=== PATIENT | female | born 1995 | race Caucasian/White ===

== ENCOUNTER 2022-02-08 09:32 | Emergency (ER) | payer MEDICAID, SELFPAY ==
[2022-02-08 09:36] VITALS: BP 101/72; PULSE 119; RESP 18; TEMP 37.1; O2SAT 98
--- NOTE | 2022-02-08 09:45 | W.ED.GENAD ---
Discharge Plan Disposition Patient Disposition: HOME Condition: Stable Discharge Details Clinical Impression: Mastitis, Syncope Primary Care Provider: None,None ED Provider: Debo Torres Home Meds and New Rx's Prescriptions: New cephalexin 500 mg tablet 500 mg PO QID 5 Days Qty: 20 0RF Continued vitamin B complex Tablet Extended Release 1 tab PO DAILY Discharge Instructions Instructions: Mastitis (ED), Syncope (ED) Additional Instructions: Your exam is consistent with mastitis. Please continue to breast-feed, as we discussed to start with the left and then go to the right. You may use warm compresses. Tylenol and ibuprofen as needed for discomfort. Please continue to massage the area to help express milk as well. Given the length of time, and concern he may be developing an infection and will likely begin the Keflex as prescribed. Please use probiotics or yogurt to help prevent diarrhea while on the antibiotics. Also concerned that you have some dehydration, please increase your water intake. I have asked our care management to ensure that you have follow-up with primary care. I would also like you to follow-up with women[facility] wellness this week for reevaluation. Please call tomorrow morning to schedule appointment, number listed below. If you develop fever/chills, spreading of the redness, inability stay hydrated or other new/worsening symptom please seek care urgently once again. Referrals: Rosenda Mark MD [ [facility]FF [facility]YSICIAN] - Medical Decision Making Patient is a pleasant 26 year old female, accompanied by significant other, with c/c of mastitis. She is breast feeding a 4 month old, has had no problems up until this point. She states that last night she began having right breast pain. Noted increasing pain and erythema over the past 12 hours. She denies fevers/chills. Has been breast feeding, using compresses and massage. Despite this continues to have discomfort. She also describes 2 episodes of syncope today. She states she has had multipe episodes of syncope historically and that this felt the same. Has not had any water and states that pain ofte is a trigger. Reports that she had feeling of lightheadedness when she stood up and then blacked out. Denies injury. No MARTIN, SOB, palpitations. Immediate return to baseline. On exam, patient appears nontoxic. Patient is tachycardic at 119, does appear dehydrated. Lungs are clear, normal cardiac auscultation. No objective signs of trauma. Exam of her breast shows erythema and firm tissue along the anterior aspect of the right breast. No focal collection or fluctuance to suggest an abscess. No lymphadenopathy. Normal left breast. Patient history of syncope found neurally mediated reviewed prodromal symptoms as well as history of this. She links this with her discomfort and states that she does not cope with discomfort well. She has not had an EKG historically, will obtain EKG to look for any potential life-threatening pathology leading to her history of syncope. EKG reviewed by Dr. Abebe. No acute ischemic changes or evidence to suggest malignant cause of her syncopal episodes. Given the length of symptoms patient's been having the occluded docs because of the mastitis, I am concerned with her developing a potential bacterial infection and do feel it would be prudent to begin oral antibiotics. We will give ibuprofen to help with discomfort, she did take acetaminophen this morning. Encouraged that she continue with breast-feeding or pumping. We discussed symptomatic management and supportive care. Encourage massage to help stimulate passage of milk. Patient is new to the area, she moved here shortly after giving . Has not had her routine care. Encouraged that she call [facility] tomorrow morning for follow-up for both mastitis as well as her routine care. Patient was able to drink 2 large glasses of water and heart rate came down to 90. Strict return precautions were discussed. All of her questions and concerns were addressed and she is in agreement this plan HPI General Date/Time Provider Initiated Documentation: 02/08/22 09:32. Limitations to Documentation: no limitations. Information obtained by: patient and RN notes reviewed. History of Present Illness 26 year old F presents to the emergency department with the chief complaint of right breast pain, described as severe, with intensity rated at 10. Quality is described as burning and aching, and is localized to the chest (right breast). Patient reports no radiation. Patient started experiencing this hour(s) (12) and it has been constant. No relieving factors improve symptom(s), No exacerbating factors reported . Patient notes rash and syncope; denies cough, fever/chills, loss of appetite, nausea/vomiting and shortness of breath. Patient did receive the following treatments prior to arrival, other (APAP) Related Data Home Medications Medication Instructions Recorded Confirmed cephalexin 500 mg tablet 500 mg PO QID 5 days #20 tabs 02/08/22 vitamin B complex 1 tab PO DAILY 02/08/22 02/08/22 Previous Rx's Medication Instructions Recorded cephalexin 500 mg tablet 500 mg PO QID 5 days #20 tabs 02/08/22 Allergies Allergy/AdvReac Type Severity Reaction Status Date / Time No Known Allergies Allergy Unverified 02/08/22 09:41 General Stated Complaint: Cellulitis SUNIL: 3 Review of Systems Constitutional Constitutional: Reports as per HPI, Denies chills and Denies fever(s) Cardiovascular Cardiovascular: Denies chest pain (breast pain, not chest pain), Reports syncope (resports this occured x 2, has hx of syncope, prodromal symptoms), Denies leg edema, Reports lightheadedness (brief, just prior to syncope), Denies radiating jaw, neck or arm pain, Denies dyspnea and Denies dyspnea on exertion Respiratory Respiratory: Denies pain on inspiration, Denies pain with cough, Denies dyspnea and Denies dyspnea on exertion Gastrointestinal Gastrointestinal: Denies abdominal pain, Denies nausea and Denies vomiting Musculoskeletal Musculoskeletal: Reports as per HPI Integumentary/Breasts Skin/Breast: Reports as per HPI, Reports breast swelling, Reports breast skin changes (inferior erythema right breast), Reports breast pain, Reports change in pigmentation, Reports erythema and Reports skin pain Neurologic Neurologic: Reports as per HPI and Reports syncope (resports this occured x 2, has hx of syncope, prodromal symptoms) PFSH All Active Problems (Updated 02/08/22 @ 10:32 by BINDU Owens) Mastitis (Acute) Syncope (Chronic) Social History Smoking/Tobacco Use Status: Never Smoking risk assessment performed?: Yes Alcohol Intake: never Drug use: Never Substance use type: does not use Do you feel safe at home: Yes Do you feel safe in your relationship?: Yes Exam Const General: cooperative, healthy appearing, comfortable, no acute distress and well developed Nutritional Appearance: average body habitus and well nourished Orientation: alert and awake Chest Chest/axillae images: 1. Area of erythema and swelling. No focal area of swelling/fluctuance. No discharge. Discomfort with palpation. No axillary lymphyadenopathy Resp Effort & Inspection: normal respiratory effort, able to speak in complete sentences and no respiratory distress Auscultation: clear to auscultation bilaterally Cardio Rate: tachycardic Rhythm: regular rhythm Heart Sounds: S1 normal and S2 normal Skin General skin exam: erythema Neuro General: patient alert and patient awake Cognition: normal cognition Speech: speech normal Gait: normal gait Sensory Exam: no sensory deficits noted Psych Appearance: grossly normal and well kempt Mental Status: mental status grossly normal Speech and Movement: speech and movement normal Course Vital Signs Vital signs: Vital Signs Temperature 37.1 C 02/08/22 09:36 Pulse 119 H 02/08/22 09:36 Respiratory Rate 18 02/08/22 09:36 Blood Pressure 101/72 02/08/22 09:36 Pulse Oximetry 98 02/08/22 09:36 Temperature 37.1 C 02/08/22 09:36 Temperature Source Oral 02/08/22 09:36 Pulse 119 H 02/08/22 09:36 Respiratory Rate 18 02/08/22 09:36 Respiratory Effort Non-Labored 02/08/22 09:40 Blood Pressure 101/72 02/08/22 09:36 Blood Pressure Position Sitting 02/08/22 09:36 Pulse Oximetry 98 02/08/22 09:36 Oxygen Delivery Method Room Air 02/08/22 09:36 Oxygen Flow Rate 0 02/08/22 09:36 Pain Level 10 02/08/22 09:36
--- NOTE | 2022-02-08 10:00 | RT.EKG_ITS ---
APPROVED REPORT Exam: Resting ECG Reason for Exam: syncope Patient Location: E HR:96 bpm ECG Measurements Heart Rate 96 AXIS OR 133 P 68 QRSd 78 QRS -17 QT 347 T 29 QTc 438 Conclusion Sinus rhythm...normal P axis, V-rate 60- 99. Sinus. No STEMI. I have reviewed and interpreted ECG and agree with software generated interpretation.
[2022-02-08] MEDS: Ibuprofen 600 MG TAB PO (10:14)
[2022-02-08] MEDS: Cephalexin 500 MG CAP PO (10:36)
--- NOTE | 2022-02-08 10:39 | NUR.NOTE ---
Debo requested a visit with [facility] for mastitis and evaluation. the patient also needs establishment with pcp. CLB
[2022-02-08 10:41] VITALS: PULSE 97
== END 2022-02-08 10:51 | disposition home or self-care (01) ==
PROVIDERS: Emergency Provider Physician Assistant
DX: N61.0 Mastitis without abscess (principal); R55 Syncope and collapse
CPT/HCPCS: 93005; 99284; 93010; 99283

== ENCOUNTER 2022-06-12 16:02 | Outpatient (REF) | payer MEDICAID, SELFPAY | END 2022-06-12 16:03 | disposition home or self-care (01) | LOC: LBN 16:02 | PROVIDERS: Visit Provider Physician Assistant Medical | DX: J02.9 Acute pharyngitis, unspecified (principal) | CPT/HCPCS: 87070 ==

== ENCOUNTER 2022-09-03 13:04 | Outpatient (REF) | payer MEDICAID, SELFPAY | END 2022-09-03 13:05 | disposition home or self-care (01) | LOC: LBN 13:04 | PROVIDERS: Visit Provider Physician Assistant Medical | DX: J02.9 Acute pharyngitis, unspecified (principal) | CPT/HCPCS: 87081 ==

== ENCOUNTER 2022-09-22 02:18 | Outpatient (CLI) | payer MEDICAID, SELFPAY ==
--- NOTE | 2022-09-22 07:00 | DI.US_ITS ---
Exam(s) US PELVIS TRANSVAGINAL EXAM: US PELVIS TRANSVAGINAL CLINICAL HISTORY: check ovary,pelvic pain, r10.2 TECHNIQUE: Ultrasound of the pelvis was performed both transabdominal and transvaginal. COMPARISON: No exams were available for comparison FINDINGS: UTERUS: Measures 7.4 cm length x 3 cm AP x 5 cm wide. There are no uterine fibroids. Endometrial thickness measures 11 mm. There is no fluid in the endometrial canal. CERVIX: There are no obvious nabothian cysts. RIGHT OVARY: Measures 4 x 2.3 x 2.2 cm Sub cm follicular cysts noted in right ovary LEFT OVARY: Measures 0.6 x 1.8 x 1.9 cm Sub cm follicular cysts are noted in left ovary. CUL-DE-SAC: There is free fluid in the right adnexa and in the cul-de-sac IMPRESSION: 1. Normal appearing uterus and age-appropriate endometrium. 2. No abnormal ovarian findings. 3. There is some free fluid evident in the right adnexa cul-de-sac. DATA REPOSITORY:
== END 2022-09-22 02:38 ==
LOC: DI 02:18
PROVIDERS: Visit Provider Obstetrics & Gynecology
DX: R10.2 Pelvic and perineal pain (principal); N83.02 Follicular cyst of left ovary; N83.01 Follicular cyst of right ovary
CPT/HCPCS: 76830; 76856

== ENCOUNTER 2022-10-01 15:40 | Outpatient (CLI) | payer MEDICAID, SELFPAY ==
[2022-10-01 14:11] LABS: HCG Quant, Pregnancy 132 mIU/mL (1-3)
== END 2022-10-01 15:41 | disposition home or self-care (01) ==
LOC: LBO 15:40
PROVIDERS: Visit Provider Obstetrics & Gynecology
DX: Z34.91 Encounter for supervision of normal pregnancy, unspecified, first trimester (principal); Z3A.01 Less than 8 weeks gestation of pregnancy
CPT/HCPCS: 36415; 84702

== ENCOUNTER 2022-11-12 02:56 | Outpatient (CLI) | payer MEDICAID, SELFPAY ==
[2022-11-12 11:41] LABS: Abs Immature Grans 0.02 10^3/uL (0.0-0.06); Absolute Basophil Count 0.09 10^3/uL (0.0-0.2); Absolute Eosinophil Count 0.11 10^3/uL (0.0-0.7); Absolute Lymphocyte Count 2.22 10^3/uL (1.2-3.4); Absolute Monocyte Count 0.42 10^3/uL (0.1-0.8); Absolute Neutrophil Count 5.13 10^3/uL (1.2-6.7); Basophils % 1.1; Eosinophils % 1.4; HCT 37.4 % (36.0-46.0); HGB 13.1 g/dL (11.2-15.7); Immature Grans % 0.3; Lymphocytes % 27.8; MCH 30.3 pg (27.0-33.0); MCV 86 fL (80-95); MPV 9.3 fL (8.0-11.0); Monocytes % 5.3; Neutrophils % 64.1; Platelet Count 220 10^3/uL (130-400); RBC 4.33 10^6/uL (3.93-5.22); RDW 12.8 % (11.7-14.6); WBC 7.99 10^3/uL (4.4-10.8)
[2022-11-12 14:24] LABS: Panorama Kit Sent via Fed Ex
[2022-11-13 09:33] LABS: Rubella IgG Ab (UVM) Positive (See Note); Varicella IgG Antibody Positive (See Note)
[2022-11-13 09:58] LABS: Hepatitis B Surface Ag Negative (Negative)
[2022-11-13 10:51] LABS: HIV-1/2 Ag & Ab Screen Negative (Negative)
[2022-11-13 10:54] LABS: Hepatitis C Ab w Rflx HCV PCR Negative (Negative)
[2022-11-13 20:15] LABS: Syphilis IgG w/Reflex Nonreactive (Nonreactive)
== END 2022-11-12 02:57 | disposition home or self-care (01) ==
LOC: LBO 02:56
PROVIDERS: Visit Provider Advanced Practice Midwife
DX: Z34.91 Encounter for supervision of normal pregnancy, unspecified, first trimester (principal); Z3A.10 10 weeks gestation of pregnancy
CPT/HCPCS: 36415; 86787; 86803; 86850; 86900; 86901; 87340; 87389; 85025; 86762; 86780

== ENCOUNTER 2022-11-12 14:00 | Outpatient (REF) | payer MEDICAID, SELFPAY ==
[2022-11-12 15:37] LABS: *AMPHETAMINES SCREEN URINE Negative (Negative); *BARBITURATES SCREEN URINE Negative (Negative); *BENZODIAZEPINES SCREEN URINE Negative (Negative); Cannabinoids THC Negative (Negative); Cocaine Screen,Urine Negative (Negative); METHADONE URINE SCREEN Negative (Negative); OPIATES URINE SCREEN Negative (Negative)
[2022-11-12 15:39] LABS: Tricyclic Antidepressants Negative (Negative)
[2022-11-14 13:21] LABS: Chlamydia Result Negative (Negative); GC Result Negative (Negative)
[2022-11-18 16:03] LABS: Buprenorphine Negative ng/mL (Cutoff: 5.0); Norbuprenorphine Negative ng/mL (Cutoff: 2.5)
== END 2022-11-12 14:01 | disposition home or self-care (01) ==
LOC: LBN 14:00
PROVIDERS: Advanced Practice Midwife; Visit Provider Advanced Practice Midwife
DX: Z34.91 Encounter for supervision of normal pregnancy, unspecified, first trimester (principal); Z3A.10 10 weeks gestation of pregnancy
CPT/HCPCS: 80307; 80348; 87491; 87591; 87086

== ENCOUNTER 2022-12-10 13:53 | Outpatient (REF) | payer MEDICAID, SELFPAY | END 2022-12-10 13:54 | disposition home or self-care (01) | LOC: LBN 13:53 | PROVIDERS: Visit Provider Advanced Practice Midwife | DX: O26.892 Other specified pregnancy related conditions, second trimester (principal); N89.8 Other specified noninflammatory disorders of vagina; R10.31 Right lower quadrant pain; Z3A.14 14 weeks gestation of pregnancy | CPT/HCPCS: 87480; 87510; 87660 ==

== ENCOUNTER 2023-01-07 01:02 | Outpatient (CLI) | payer MEDICAID, SELFPAY ==
--- NOTE | 2023-01-07 07:41 | DI.US_ITS ---
Exam(s) US OB 2-3 TRIMESTER W MOD EXAM: US OB 2-3 TRIMESTER W MOD CLINICAL HISTORY: ,Z34.92. TECHNIQUE: Transabdominal obstetrical ultrasound performed. COMPARISON: US US PELVIS TRANSVAGINAL from 09/22/2022 US POCUS EXAM from 10/20/2022 FINDINGS: Number of fetuses: 1 position: VARIED heart rate: 138bpm Placental location: There is a grade 1 posterior placenta. There is a low-lying placenta. The place ntal tip is 1 cm from the internal os. No evidence of previa. Amniotic fluid index: Amount of fluid is within normal limits. ANATOMICAL SURVEY: Within normal limits. BIOMETRIC DATA: BPD: 3.76cm, 17weeks 3days HC: 14.39cm, 17weeks 4days AC: 12.88cm, 18weeks 3days FL: 2.37cm, 17weeks 1day Cisterna magna: 5mm Cerebellum: 1.64cm EFW: 209.85g, 0.47lb, 32.1% Composite Age: 17weeks 5days ONIEL: 06/12/2023 Heart Rate: 138bpm ANATOMICAL SURVEY: Four-chambered heart: Unremarkable. RVOT: Not well visualized. The patient is scheduled to return for reimaging. LVOT: Not well visualized. The patient is scheduled to return for reimaging. Three-vessel cord: Unremarkable. Cord insertion: Unremarkable. Bilateral kidneys: Unremarkable. urinary bladder: Unremarkable. Left-sided stomach: Unremarkable. spine: Unremarkable. ventricles: Unremarkable. Posterior fossa: Not well visualized. The patient is scheduled to return for reimaging. Two arms and two legs: Unremarkable. nose/lips: Unremarkable. Palate: Unremarkable. IMPRESSION: 1. Single live intrauterine gestation as above. 2. Normal anatomic survey however the right ventricular outflow tract, left ventricular outflow tract and posterior fossa were not well imaged on the patient is scheduled to return on 01/19/2023 fo r reimaging. 3. Low-lying placenta. DATA REPOSITORY:
== END 2023-01-07 01:22 ==
LOC: DI 01:02
PROVIDERS: Visit Provider Advanced Practice Midwife
DX: Z34.92 Encounter for supervision of normal pregnancy, unspecified, second trimester (principal); O44.42 Low lying placenta NOS or without hemorrhage, second trimester
CPT/HCPCS: 76805

== ENCOUNTER 2023-01-19 01:22 | Outpatient (CLI) | payer MEDICAID, SELFPAY ==
--- NOTE | 2023-01-19 06:45 | DI.US_ITS ---
Exam(s) US OB F/U FACIAL/LVOT/RVOT EXAM: US OB F/U FACIAL/LVOT/RVOT CLINICAL HISTORY: f/u low lying placenta,rvot,lvot and cerebellum,O44.42. TECHNIQUE: Transabdominal obstetrical ultrasound performed. COMPARISON: US US OB 2-3 TRIMESTER W MOD from 01/07/2023 FINDINGS: Number of fetuses: 1 position: Cephalic Placental location: There is a posterior placenta. The placental tip is 1.8 cm from the internal os. No evidence of previa. Cisterna magna: 5 mm. Cerebellum: 1.8 cm. The right ventricular outflow tract, left ventricular outflow tract, posterior fossa, ventricles and palate are unremarkable. IMPRESSION: 1. Single live intrauterine gestation as above. 2. The survey was completed with visualization of the ventricular outflow tracks, posterior fos sa and palate which are all unremarkable.. 3. The placental tip is 1.8 cm from the internal os. DATA REPOSITORY:
== END 2023-01-19 01:42 ==
PROVIDERS: Visit Provider Advanced Practice Midwife
DX: O44.42 Low lying placenta NOS or without hemorrhage, second trimester (principal)
CPT/HCPCS: 76815

== ENCOUNTER 2023-03-18 02:00 | Outpatient (CLI) | payer MEDICAID, SELFPAY ==
--- NOTE | 2023-03-18 06:45 | DI.US_ITS ---
Exam(s) US OB F/U FACIAL/LVOT/RVOT EXAM: US OB F/U FACIAL/LVOT/RVOT CLINICAL HISTORY: determine placental location,o44.42. TECHNIQUE: Transabdominal obstetrical ultrasound was performed. COMPARISON: US US OB F/U FACIAL/LVOT/RVOT from 01/19/2023 FINDINGS: There is a single viable intrauterine gestation with cardiac activity identified-143 bpm The fetus is presently in cephalic position . Amniotic fluid: There is a normal amount of amniotic fluid. Three-vessel umbilical cord noted. Placental location: The placenta is posterior grade 1,and the distance from the tip of placenta to th e internal cervical os 1.6 cm on today's study.Cervix is closed. IMPRESSION:: Viable intrauterine gestation, as described above present in cephalic position.. Slightly low lying posterior placenta. The distance from the tip of the placenta to the internal cer vical os is 1.6 cm on today's study. DATA REPOSITORY:
== END 2023-03-18 02:20 ==
PROVIDERS: Visit Provider Advanced Practice Midwife
DX: O44.42 Low lying placenta NOS or without hemorrhage, second trimester (principal)
CPT/HCPCS: 76815

== ENCOUNTER 2023-03-18 03:00 | Outpatient (CLI) | payer MEDICAID, SELFPAY ==
[2023-03-18 10:16] LABS: HCT 33.6 % (36.0-46.0); HGB 11.7 g/dL (11.2-15.7); MCH 31.2 pg (27.0-33.0); MCHC 34.8 % (32.0-36.0); MCV 90 fL (80-95); MPV 9.1 fL (8.0-11.0); Platelet Count 208 10^3/uL (130-400); RBC 3.75 10^6/uL (3.93-5.22); RDW 13.1 % (11.7-14.6); RDW-SD 42.7 fL; WBC 8.16 10^3/uL (4.4-10.8)
[2023-03-18 10:27] LABS: Glucose,1 Hr (Glucola) 59 mg/dL (80-140)
== END 2023-03-18 03:01 | disposition home or self-care (01) ==
LOC: LBO 03:00
PROVIDERS: Advanced Practice Midwife; Visit Provider Advanced Practice Midwife
DX: O26.893 Other specified pregnancy related conditions, third trimester (principal); Z3A.28 28 weeks gestation of pregnancy; Z01.84 Encounter for antibody response examination
CPT/HCPCS: 36415; 82950; 85027; 86850; 90384

== ENCOUNTER → 2023-04-29 02:41 | Outpatient (CLI) | payer MEDICAID, SELFPAY ==
--- NOTE | 2023-04-29 07:45 | DI.US_ITS ---
Exam(s) US OB WALTER WEIGHT EXAM: US OB WALTER WEIGHT CLINICAL HISTORY: AC on US at [facility] [place] <10% BPP and doppler normal 30 wk,Z34.90. TECHNIQUE: Transabdominal obstetrical ultrasound was performed. COMPARISON: US US OB DETAILED MORPHOLOGY from 04/15/2023 FINDINGS: There is a single viable intrauterine gestation with cardiac activity identified-148 bpm The fetus is presently in cephalic position . Amniotic fluid: There is a normal amount of amniotic fluid with an WALTER of 12.87cm. Placental location: The placenta is posterior grade 2,with no evidence of placenta previa. Dating parameters place this at approximately 33 weeks and 2 days gestational age, implying ONIEL of 06/15/2023. BPD measures 34 weeks and 1 day HC measures 34 weeks and 3 days AC measures 33 weeks and 2 days FL measures 31 weeks and 1 day Estimated weight is 2066 gm-4 pounds 9 ounces Fetus is at the 15th percentile on the Hadlock scale. IMPRESSION:: Viable 3rd trimester gestation, as described above. DATA REPOSITORY:
== END ==
PROVIDERS: Visit Provider Advanced Practice Midwife
DX: Z34.93 Encounter for supervision of normal pregnancy, unspecified, third trimester (principal)
CPT/HCPCS: 76816

== ENCOUNTER 2023-05-13 10:51 | Outpatient (REF) | payer MEDICAID, SELFPAY ==
[2023-05-13 12:22] LABS: *AMPHETAMINES SCREEN URINE Negative (Negative); *BARBITURATES SCREEN URINE Negative (Negative); *BENZODIAZEPINES SCREEN URINE Negative (Negative); Cannabinoids THC Negative (Negative); Cocaine Screen,Urine Negative (Negative); METHADONE URINE SCREEN Negative (Negative); OPIATES URINE SCREEN Negative (Negative)
[2023-05-13 12:23] LABS: Tricyclic Antidepressants Negative (Negative)
[2023-05-20 10:44] LABS: Buprenorphine Negative ng/mL (Cutoff: 5.0)
== END 2023-05-13 10:52 | disposition home or self-care (01) ==
LOC: LBN 10:51
PROVIDERS: Visit Provider Advanced Practice Midwife
DX: Z34.93 Encounter for supervision of normal pregnancy, unspecified, third trimester (principal)
CPT/HCPCS: 80307; 80348; 87081

== ENCOUNTER 2023-06-16 05:22 | Inpatient (IN) | payer MEDICAID, SELFPAY ==
[2023-06-16] VITALS (24 sets, daily range): BP systolic 94–130; BP diastolic 61–88; PULSE 73–134; RESP 16–18; TEMP 36.5–37.1
--- NOTE | 2023-06-16 08:47 | W.PM.OBHPL1 ---
Date of service: 06/16/23 Time of Service: 08:47 Assessment and Plan Assessment and plan (1) Uterine contractions: Status: Acute OB-HPI Labor/Delivery History of Present Illness Reason for Visit: Rule out labor Chief Complaint: Uterine Contractions (with cervical change to 5/100% since 0500). ONIEL Calculator Estimated Delivery Date Method Current WG Current Estimate 06/10/23 Ultrasound #1 40w 6d Other Estimates 06/01/23 LMP (Uncertain) 42w 1d History of Present Expected Delivery Route/Plan - CNM FOB/ - Cal Garcia (2nd child together) BG hoping for water GBS negative Specific Issues/Plan 1. Is not vaccinated against COVID or flu, declines vaccines has not had COVID in 2. cfDNA low prob x5, female. Declines SMA/CF, as well as AFP 3. Has nephew with transposition of great vessels but was related to medication per surgeon. Declines MFM or level II US 4. Rh neg, rhogam at 28 weeks on 03/18/23 5. Nursing toddler, plans to pump and feed both breast and formula 6. Limited US views of brain/heart and low lying placenta - repeat US 01/19/23=normal anatomy, 6a. US placenta location @ 28 wks, if still low lying pt desires recheck at [facility] in 3-4 wks 6b. US at [facility] 04/15; Posterior placenta, no previa, EFW 36%ile, AC<10% BPP and doppler normal 04/15 at [facility]- growth US recommended for 2 weeks later. 6c. 04/29 US at , EFW 15%ile and WALTER WNL. 6d. 05/19 US at [facility] with EFW 34%ile. WALTER 14.8 7. Tubal consult 04/01/23. Pt undecided, favors LARC. Given info re; Nexplanon vs Kyleena. 8. 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 Spinning babies recommended. Assessment: History Reviewed & Current Review of Systems Narrative: ROS completed and found to be noncontributory other than HPI PFSH All Active Problems (Updated 06/16/23 @ 08:53 by Tasha Chu) Uterine contractions (Acute) Left leg pain (Acute) Symphysis pubis disruption (Acute) Rh negative state in antepartum period (Acute) (Acute) Sciatic nerve pain (Acute) Medical History (Updated 06/16/23 @ 08:53 by Tasha Chu) Contraceptive management Delayed menses Early stage of Family history of transposition of great vessels pt's sister's son, surgeon told them it was likely due to med use in Small for gestational age fetus affecting management of mother, third trimester, single gestation Surgical History (Updated 11/12/22 @ 10:31 by Fadia Ibrahim CNM) H/O wisdom tooth extraction Social History (Updated 11/12/22 @ 11:31 by Fadia Ibrahim CNM) Smoking/Tobacco Use Status: Never Smoking risk assessment performed?: Yes Alcohol Intake: never Drug use: Never Substance use type: does not use Adopted: No Foster care: No Household members: spouse and children Housing: apartment Number of Children: 1 Communication Needs: None Education Level: high school Do you need help understanding health information?: Never current occupation: homemaker Pets and animals: No Sexually active: Yes Do you think of yourself as: straight/heterosexual Current gender identity: female What is your relationship status?: How often do you talk on the phone with friends or family?: three or more times per week How often do you get together with friends or relatives?: three or more times per week How often do you attend mormonism or bahai services?: decline to answer Do you belong to any clubs or organized social groups?: no Panel score (0-1 are the most socially isolated patients): 2 NHANES result reviewed/action taken: No What type of physical activity do you participate in: walking Duration: 15-30 minutes/day Frequency: 1-2 times per week Seatbelt use: always Drive intox or ride w/intox armor reconnaissance vehicle driver: No Do you feel safe at home: Yes Do you feel safe in your relationship?: Yes Victim of physical abuse: No Victim of emotional abuse: No Victim of sexual abuse: No History History 4 Para 1 Hx # Term Pregnancies 1 Multiple births 0 Hx # Pregnancies 0 Ectopic pregnancies 0 AB induced 0 Hx Number of Living Children 1 AB spontaneous 2 Past Pregnancies Del. Date GA/Weeks # Preg Succ Route Wgt Sex Labor Lgth Anesthesia Location Prov Complic 10/01/20 4 No No 10/07/20 6 No No 10/04/21 40 No Yes vaginal 7 lb 13 oz Female 11 hours [facility] Delivery Date: 06/06/20 Last Updated by: Fadia Ibrahim CNM SAB no complications, not dated Delivery Date: 10/07/20 Last Updated by: Fadia Ibrahim CNM SAB no complications, was a dated Delivery Date: 10/04/21 Last Updated by: Fadia Woodall CNM used tub for comfort, would like tub this time, Betza[place], is nursing still, left leg paralysis after and unable to walk x 24 hours after . IV pain medication immediately before . Meds Allergies and Home Medications Allergies Allergy/AdvReac Type Severity Reaction Status Date / Time amoxicillin Allergy Intermediate Hives Verified 06/10/23 09:06 Home Medications Medication Instructions Recorded Confirmed Type vitamin with calcium 1 tab PO DAILY #90 tabs 10/07/22 06/10/23 Rx no.72-iron 27 mg-folic acid 1 mg tablet promethazine 25 mg tablet 25 mg PO Q6H PRN nausea and 02/04/23 06/10/23 Rx vomiting #30 tabs fluconazole 150 mg tablet 150 mg PO ONCE #1 tab 06/15/23 Rx Exam Physical Exam Vital signs: Temp Pulse Resp BP 97.7 F 80 16 130/81 06/16/23 07:46 06/16/23 07:46 06/16/23 07:46 06/16/23 07:46 Vital Signs Reviewed: Yes Constitutional Constitutional: mild distress, average body habitus and cooperative Detailed Labor and Delivery Exam Dilation: 5 Effacement (%): 100 station: -2 Cervix position: mid Amniotic Membrane Status: Intact Contraction Frequency(min): irregular Contraction Duration(sec): 60 Contraction Intensity: Moderate Fetus A Variability: Moderate (6-25 BPM) Categories: Category I Est. Weight: 7 lb 11.459 oz Est. Weight: 3500 gms HEENT Exam HEENT Exam: Normal Neck Exam Neck Exam: Normal Chest/Brest/Axilla Exam Chest Exam: Normal Breast Exam Breast Exam: Not Done Respiratory Exam Respiratory Exam: Normal Cardiovascular Exam Cardiovascular Exam: Normal Abdominal Exam Abdominal Exam: Normal (Gravid, nontender) Rectal Exam Rectal Exam: Normal Exam Exam: Normal Extremities Exam Extremities Exam: Normal Back/Spine/Pelvis Exam Back Exam: Normal Pelvis Adequate: Yes (proven to ) Skin Exam Skin Exam: Normal Neurological Exam Neurological Exam: Normal Psychiatric Exam Psychiatric Exam: Normal Results Results Group Beta Strep: Negative Blood Type: A- Rubella Status: Immune Varicella Immunity: Immune Risk Assessment Risk for Shoulder Dystocia Historical/Initial OB: NEGATIVE FOR: Pelvic Abnormality, Pre- BMI>30, Previous Shoulder Dystocia or Previous Macrosomia 36 Weeks: NEGATIVE FOR: Current Gestational DM, EFW>4500gms or Maternal Weight Gain>40lbs Increased Risk?: No Date/Initial: 11/12/22 Risk for Pre-Eclampsia Daily Dose ASA Indicated: No Yes, if one or more: NEGATIVE FOR: Hx Pre-E/Gest HTN, Chronic HTN, Multiple Gestation, Pre-gestational DM, Renal Disease, Systemic Lupus or APA Syndrome Yes, if 2 or more: NEGATIVE FOR: Nulliparity, Age>= 35 yrs, >10yr btwn pregnancies, BMI>30, ethinicty, Mother/Sister w/ Pre-E or Previous IUGR Risk for Post- Hemorrhage Initial: NEGATIVE FOR: Multiple Gestation, Previous PPH, Known Clotting Deficiency, Grand Multiparity or Anticoagulation 36 Weeks: NEGATIVE FOR: Anemia, hgb<10, Low platelets(thrombocytopenia), Gestational HTN or Pre-E, Polyhydraminios or EFW>4500gms At Risk?: No Counseled re: Active Management: Yes Risks Reviewed Risks Reviewed Upon Admission: Yes
[2023-06-16 09:46] LABS: HCT 29.9 % (36.0-46.0); HGB 9.9 g/dL (11.2-15.7); MCHC 33.1 % (32.0-36.0); MCV 85 fL (80-95); MPV 10.3 fL (8.0-11.0); Platelet Count 178 10^3/uL (130-400); RBC 3.54 10^6/uL (3.93-5.22); RDW 13.2 % (11.7-14.6); RDW-SD 40.6 fL; WBC 7.53 10^3/uL (4.4-10.8)
[2023-06-16 11:29] LABS: Source Nasal/Nares
[2023-06-16 12:02] LABS: COVID-19 PCR Negative (Negative)
[2023-06-16] MEDS: Oxytocin 10 UNITS/ML VIAL IM (13:24)
--- NOTE | 2023-06-16 13:46 | OBVDS_ITS ---
Date of service: 06/16/23 Time of Service: 13:47 OB Labor/ Delivery Information Baby A Delivery Delivery Method: Spontaneaous Presentation: Cephalic Cephalic Position: Vertex Vertex Position: Right Occipital Anterior Cord Description-Baby A: 3 Vessels Amniotic Fluid: Clear Estimated Blood Loss: 150 QBL Delivery Outcome: Liveborn Transferred: Remains with Mother Note: Pt admitted at 5 cm dilation, her was en route from over 3 hours away. Pt resting in bed or ambulating, tub made ready in case pt desires immersion, FOB arrived @ 1240 at which time pt relaxed in bed and began feeling increasing pelvic pressure. She requested AROM @ 1300 which was done for clear fluid return, FHT's per intermittent auscultation had been and continued to be reassuring. Pt assisted to LLP as she felt she could not walk to the tub, 2nd s tage huddle completed and shortly thereafter of a vigorous female over intact perineum accomplished, shoulders came easily and infant to mother's arms immediately. Pitocin 10 units given IM, cord clamped and cut by FOB at 4-5 minutes of age, cord blood collected, Shi placenta delivered intact with 3VC. Perineum found to be intact, small vaginal lac just inside introitus not bleeding, well approximated, not repaired. QBL in drape @ 150 ml, fundus firm below umbilicus, strong family bonding observed, apgars 8/9, weight 3655 gms. Providers Nurse Corporate Services Manager: Tasha Chu Nurse: Madison Bearden Nurse: Amira Purvis Labor/Delivery Information Number of Babies in Womb: 1 Steroids Given: None Reason Steroids Not Administered: N/A Group Beta Strep: Negative Antibiotics Administered: No Rubella Status: Immune Blood Type: A- Varicella Immunity: Immune Medication in Delivery: pitocin 10 units IM after Shoulder Dystocia: No Stages of Labor Onset of Labor Date: 06/16/23 Onset of Labor Time: 01:00 Complete Dilatation Date: 06/16/23 Complete Dilatation Time: 13:09 Labor - Stage 1 Duration: 12 hours and 9 minutes ROM Baby A: 06/16/23 ROM Baby A: 13:01 ROM Total Time- Baby A: [id number] Infant Delivery Date-Baby A: 06/16/23 Infant Delivery Time-Baby A: 13:23 Labor Stage 2 Duration: 14 minutes Placenta Delivery Date-Baby A: 06/16/23 Placenta Delivery Time-Baby A: 13:32 Labor-Stage 3 Duration: 9 minutes Total Length of Labor-Baby A: 12 hours and 23 minutes Placenta Status: Delivered Baby A Infant Gender: Female Gestational Status: Term (39-41.6 wks) Gestational Age in Weeks/Days: 40 Weeks and 6 Days weight: 8 lb 0.926 oz Weight Comment: 3655 gms Score-1 Minute Interval(Baby A) Heart Rate-1 minute: 100 BPM or Greater Respiratory Effort- 1 minute: Spontaneous/Strong Cry Muscle Tone-1 minute: Active Movement Reflex Response-1 minute: Prompt Response Color-1 minute: Pallor or Cyanosis Total Score-1 minute: 8 Score-5 Minute Interval(Baby A) Heart Rate- 5 minute: 100 BPM or Greater Respiratory Effort-5 minute: Spontaneous/Strong Cry Muscle Tone-5 minute: Active Movement Reflex Response-5 minute: Prompt Response Color-5 minute: Bluish Hands or Feet Total Score- 5 minute: 9
[2023-06-16] MEDS: Acetaminophen 325 MG TAB 650 MG PO ×2 (14:00→18:06)
[2023-06-16] MEDS: Ibuprofen 600 MG TAB PO ×2 (14:00→20:59)
[2023-06-16] MEDS: Dibucaine 1% 28 GM TUBE TP (14:01)
[2023-06-16] MEDS: Hamamelis Leaf/Glycerin 100 EACH BOX PR (14:01)
[2023-06-16] MEDS: Lactated Ringers 500 ML IV (16:50)
[2023-06-16] MEDS: Oxytocin/Normal Saline 30 UNIT/500 ML BAG 334 UNITS IV (16:50)
--- NOTE | 2023-06-16 16:50 | W.PM.OBPNV1 ---
Date of service: 06/16/23 Time of Service: 16:50 Assessment and Plan Assessment and plan (1) Term delivered: Status: Acute Assessment and plan: 3 hours CNM summoned to pt's room on report of soft BP 106/62 and maternal tachycardia @ 135 bpm Pt had ambulated to the BR and voided 500 ml, lochia recorded as moderate by nursing Lower uterine segment explored and large amount of clots evacuated manually, pt tolerate procedure well QBL measured @ 645 ml of clots Scant lochia after exam, fundus firm 3-4 cm below umbilicus though remains off to the right of midline Will bolus 500 ml LR IV and begin routine IV pitocin infusion protocol BP 121/66 with maternal pulse @ 90 after IV fluids begun Bladder scan for urinary residual is negative Monitor closely for increased lochia or re-collection of clots Subjective Subjective Interval history: pt reports increased cramping since delivery, dizzy when ambulated to BR Exam Physical Exam Vital signs: Temp Pulse Resp BP 98.2 F 104 H 18 94/61 L 06/16/23 12:12 06/16/23 16:39 06/16/23 12:12 06/16/23 16:39 Vital Signs Reviewed: Yes Fundal Exam Fundus: Below Umbilicus, Firm and Other (to the right of midline) Results Hemoglobin/Hematocrit: Hgb 9.9 g/dL (11.2-15.7) L 06/16/23 09:30 Hct 29.9 % (36.0-46.0) L 06/16/23 09:30 Abnormal Lab Findings: Abnormal Labs 06/16/23 09:30 RBC 3.54 L Hgb 9.9 L Hct 29.9 L
[2023-06-16] MEDS: Lactated Ringers 1,000 ML 200 ML IV (17:51)
[2023-06-16] MEDS: ceFAZolin 2,000 MG in Normal Saline 100 ML 200 MG IVPB (20:14)
[2023-06-16] MEDS: miSOPROStol 50 MCG TAB 600 MCG PO (20:17)
[2023-06-17] MEDS: Acetaminophen 325 MG TAB 650 MG PO (01:50)
[2023-06-17 02:18] VITALS: BP 123/85; PULSE 83; RESP 17; TEMP 37.1; O2SAT 98
[2023-06-17] MEDS: ceFAZolin 2,000 MG in Normal Saline 100 ML 200 MG IVPB (03:47)
[2023-06-17] MEDS: Ibuprofen 600 MG TAB PO (03:48)
[2023-06-17 08:15] VITALS: BP 118/89; PULSE 104; RESP 18; TEMP 36.9; O2SAT 99
--- NOTE | 2023-06-17 08:20 | OBPPV_ITS ---
Date of service: 06/17/23 Time of Service: 08:20 Assessment and Plan Assessment and plan (1) Term delivered: Status: Acute Assessment and plan: A: PPD#1, s/p uterine sweep x2 for clots vital signs stable, pt denies sx of blood loss satisfied with experience P: Received 2 liters IVF, PP pitocin, Ancef 2 gms x2, miso 600 mcg PO Will check CBC this evening after 24 hrs PP Plans TL; is pumping milk to bottlefeed Pt desires discharge tomorrow Dr. Blevins available for consultation Subjective Subjective Patient comments: Pain well controlled, Tolerating diet and Flatus present Patient's Mood: pleased [place] baby status: Doing well, Bottle feeding well (baby is being bottle fed pumped breastmilk) and Rooming in [place] feeding status: Pumping and bottle feeding Narrative: Pt states she is feeling good this morning after having slept well, is eating breakfast, cramps are about gone, bleeding minimal, voiding large amounts without trouble, denies dizziness when ambulating. Exam Physical Exam Vital signs: Temp Pulse Resp BP Pulse Ox 98.8 F 83 17 123/85 98 06/17/23 02:18 06/17/23 02:18 06/17/23 02:18 06/17/23 02:18 06/17/23 02:18 Vital Signs Reviewed: Yes Constitutional Constitutional: no acute distress and cooperative HEENT Exam HEENT Exam: Normal Neck Exam Neck Exam: Normal Breast Exam Bilateral: Breast Exam: Normal and Soft Nipple Exam: Normal and Uninjured Respiratory Exam Respiratory Exam: Normal Cardiovascular Exam Cardiovascular Exam: Normal Abdominal Exam Abdomen: Other (soft, nontender) Fundal Exam Fundus: Below Umbilicus and Firm Rectal Exam Rectal Exam: Normal Exam Perineum: Intact and Normal Extremities Exam Extremity Exam: Normal Back/Spine/Pelvis Exam Back Exam: Normal Skin Exam Skin Exam: Normal Neurological Exam Neurological Exam: Normal Psychiatric Exam Psychiatric Exam: Normal
--- NOTE | 2023-06-17 10:27 | PDOC.NST_ITS ---
Date of service: 06/17/23 Time of Service: 10:28 NST Evaluation Reason for NST Reasons for Nonstress Test: POSTDATES and OTHER, SEE COMMENT Reason for NST Other: RO labor Gestational Age Gestational Age in Weeks and Days: 40 Weeks and 6Days Test and Monitor Explained Test/Monitor Explained: Test Explained, Monitor Explained and Patient Verbalized Understanding Vital Signs Blood Pressure: 122/80 Pulse: 83 Temperature: 97.8 F Urine Results Urine Protein: Positive Urine Ketones: Negative Urine Glucose: Negative Urine Blood: Negative NST Information Date on Monitor: 06/16/23 Time on Monitor: 05:30 NST Interventions: None Contraction Frequency: every 10 minutes NST Evaluation Patient States Movement: Present FHR Baseline: 135 Variability: Moderate 6-25 bpm Accelerations: 15x15 Decelerations: None NST Results: Reactive Note Ultrasound Done: N/A. NST Note Note: Chey has been experiencing contractions every 10 minutes at home and presents for rule out labor to confirm. Cervic 3 multicultural manager. Will continue to assess x 2-3 hours and admit with signs of active labor. NST Reviewed and Verified by: Fadia Woodall
[2023-06-17 10:29] VITALS: BP 122/80; PULSE 83; TEMP 36.6
[2023-06-17 13:00] VITALS: BP 119/69; PULSE 106; RESP 16; TEMP 36.7; O2SAT 100
[2023-06-17] MEDS: Docusate Sodium 100 MG CAP PO (15:51)
[2023-06-17 18:29] LABS: MCH 27.9 pg (27.0-33.0); MCV 87 fL (80-95); MPV 10.3 fL (8.0-11.0); Platelet Count 165 10^3/uL (130-400); RBC 2.29 10^6/uL (3.93-5.22); RDW 13.6 % (11.7-14.6); RDW-SD 42.2 fL; WBC 9.04 10^3/uL (4.4-10.8)
[2023-06-17 18:31] LABS: HGB 6.4 g/dL (11.2-15.7)
--- NOTE | 2023-06-17 19:40 | W.PM.OBPNV1 ---
Date of service: 06/17/23 Time of Service: 19:40 Assessment and Plan Assessment and plan (1) Term delivered: Status: Acute Assessment and plan: (2) Anemia complicating childbirth: Status: Acute Assessment and plan: A: Admission hgb/hct was 9.9/29.9 QBL from delivery & 3 hrs 800 ml Hgb/hct at 24 hrs 6.4/20.0 Pt denies sx of anemia, pulse 100-110, normotensive P: Options for treatment discussed with pt, She declines blood transfusion, prefers iron infusion with oral therapy Will give 300 mg iron sucrose IV tonight Daily iron supplementation & iron rich foods, Recommended to pt RTO 1 wk for hgb check, repeat infusions until hgb>10 Subjective Subjective Interval history: Pt has been ambulating, showered, tolerating PO intake well She denies dizziness or significant weakness or shortness of breath Patient comments: Pain well controlled, Tolerating diet and Flatus present baby status: Rooming in and Strong Bonding Observed feeding status: Pumping and bottle feeding Exam Physical Exam Vital signs: Temp Pulse Resp BP Pulse Ox 98.1 F 106 H 16 119/69 100 06/17/23 13:00 06/17/23 13:00 06/17/23 13:00 06/17/23 13:00 06/17/23 13:00 Vital Signs Reviewed: Yes Constitutional Constitutional: no acute distress and cooperative HEENT Exam HEENT Exam: Normal Neck Exam Neck Exam: Normal Breast Exam Bilateral: Breast Exam: Normal and Soft Respiratory Exam Respiratory Exam: Normal Cardiovascular Exam Cardiovascular Exam: Normal Abdominal Exam Abdomen: Other (soft, nontender) Fundal Exam Fundus: Below Umbilicus and Firm Rectal Exam Rectal Exam: Normal Exam Perineum: Intact and Normal Extremities Exam Extremity Exam: Normal Back/Spine/Pelvis Exam Back Exam: Normal Skin Exam Skin Exam: Normal Neurological Exam Neurological Exam: Normal Psychiatric Exam Psychiatric Exam: Normal Results Hemoglobin/Hematocrit: Hgb 6.4 g/dL (11.2-15.7) L* D 06/17/23 18:15 Hct 20.0 % (36.0-46.0) L* 06/17/23 18:15 Abnormal Lab Findings: Abnormal Labs 06/16/23 06/17/23 09:30 18:15 RBC 3.54 L 2.29 L Hgb 9.9 L 6.4 L* D Hct 29.9 L 20.0 L*
[2023-06-17] MEDS: IRON SUCROSE COMPLEX 300 MG in Normal Saline 250 ML 167 MG IVPB (20:40)
[2023-06-17 20:45] VITALS: BP 120/70; PULSE 90; RESP 17; TEMP 36.6; O2SAT 100
[2023-06-17] MEDS: Normal Saline Flush 10 ML SYR IVP (22:49)
[2023-06-17] MEDS: Dibucaine 1% 28 GM TUBE TP (22:49)
[2023-06-18 02:00] VITALS: BP 125/75; PULSE 89; RESP 17; TEMP 36.8; O2SAT 98
[2023-06-18] MEDS: Acetaminophen 325 MG TAB 650 MG PO (06:37)
[2023-06-18] MEDS: Docusate Sodium 100 MG CAP PO (06:37)
[2023-06-18] MEDS: Ibuprofen 600 MG TAB PO (06:37)
--- NOTE | 2023-06-18 07:58 | W.PM.OBPNV1 ---
Date of service: 06/18/23 Time of Service: 07:58 Assessment and Plan Assessment and plan (1) Term delivered: Status: Acute Assessment and plan: A: PPD#2, pt requests discharge to home P: Written instructions reviewed and given to pt Pt attending a family , will RTO at 1-2 wks PP for hgb recheck Planning tubal as BCM Good supports are in place from family and friends Will discharge to home today (2) Anemia complicating childbirth: Status: Acute Assessment and plan: Iron infusion given last night Pt reports feeling well this morning Will return to office 1-2 wks for hgb recheck and repeat iron infusion if indicated Counseled in iron rich foods and daily iron tablet Subjective Subjective Patient comments: No complaints, Pain well controlled, Tolerating diet and Flatus present Patient's Mood: tired [place] baby status: Doing well, Bottle feeding well, Supplemental feeding going well, Rooming in and Strong Bonding Observed [place] feeding status: Breast and formula feeding and Pumping and bottle feeding Exam Physical Exam Vital signs: Temp Pulse Resp BP Pulse Ox 98.2 F 89 17 125/75 98 06/18/23 02:00 06/18/23 02:00 06/18/23 02:00 06/18/23 02:00 06/18/23 02:00 Vital Signs Reviewed: Yes Constitutional Constitutional: no acute distress and cooperative HEENT Exam HEENT Exam: Normal Neck Exam Neck Exam: Normal Breast Exam Bilateral: Breast Exam: Normal and Soft Respiratory Exam Respiratory Exam: Normal Cardiovascular Exam Cardiovascular Exam: Normal Abdominal Exam Abdomen: Other (soft, nontender) Fundal Exam Fundus: Below Umbilicus and Firm Rectal Exam Rectal Exam: Normal Exam Perineum: Intact and Normal Extremities Exam Extremity Exam: Normal Back/Spine/Pelvis Exam Back Exam: Normal Skin Exam Skin Exam: Normal Neurological Exam Neurological Exam: Normal Psychiatric Exam Psychiatric Exam: Normal Results Hemoglobin/Hematocrit: Hgb 6.4 g/dL (11.2-15.7) L* D 06/17/23 18:15 Hct 20.0 % (36.0-46.0) L* 06/17/23 18:15 Abnormal Lab Findings: Abnormal Labs 06/16/23 06/17/23 09:30 18:15 RBC 3.54 L 2.29 L Hgb 9.9 L 6.4 L* D Hct 29.9 L 20.0 L* Hemorrrhage Note IV Site Right Hand: IV Catheter Gauge: 20 Left Hand: IV Catheter Gauge: 20
[2023-06-18 08:00] VITALS: BP 114/79; PULSE 107; RESP 16; TEMP 36.7; O2SAT 97
--- NOTE | 2023-06-18 08:03 | W.PM.OBDISCH ---
Date of service: 06/18/23 Time of Service: 08:03 DS: Diagnosis Discharge Diagnosis (1) Term delivered: Status: Acute (2) Anemia complicating childbirth: Status: Acute Discharge Plan Disposition Patient Disposition: Home Condition: Good Discharge Details Reason For Visit: Rule out labor Admit Date/Time: 06/16/23 05:22 Admit Provider: Fadia Woodall Attending Provider: Fadia Woodall Hospital Course Hospital Course: , increased blood loss after delivery, pt declined blood transfusion and accepted iron infusion instead, discharged in good/stable condition on day #2 Home Meds and New Rx's Prescriptions: No Action PNV,calcium 64-oxlp-bpdbs acid 27 mg iron- 1 mg tablet 1 tab PO DAILY Qty: 90 3RF ferrous sulfate 325 mg (65 mg iron) tablet,delayed release (DR/EC) 325 mg PO DAILY Qty: 90 3RF Discharge Instructions Additional Instructions: Please keep your 2 and 6 wk appointments with the wellness coordinator, call for any and all concerns, please resume taking vitamins and iron supplement daily. Stand Alone Forms: BC Instructions, BC Post Vaginal Deliver Activity:: Activity as Tolerated Equipment/Supplies:: No Equipment Needed Diet:: Normal Diet OB:DS Summary Summary Vaginal Delivery Method: Spontaneaous Episiotomy Description: None Laceration Description: None Laceration Extension: N/A Contraception Discussed Contraception Discussed: Yes Contraceptive Plan: Tubal Ligation, [place] Gender-Baby A: Female weight: 8 lb 0.926 oz Status at Discharge Functional status at discharge: independent ambulation Overall status at discharge: patient is progressing back to baseline Mental Status: mental status grossly normal Speech and Movement: speech and movement normal and speech clear Mood: congruent mood Affect: normal affect Exam Physical Exam Vital signs: Temp Pulse Resp BP Pulse Ox 98.2 F 89 17 125/75 98 06/18/23 02:00 06/18/23 02:00 06/18/23 02:00 06/18/23 02:00 06/18/23 02:00 Vital Signs Reviewed: Yes Constitutional Constitutional: no acute distress and cooperative HEENT Exam HEENT Exam: Normal Neck Exam Neck Exam: Normal Breast Exam Bilateral: Breast Exam: Normal and Soft Respiratory Exam Respiratory Exam: Normal Cardiovascular Exam Cardiovascular Exam: Normal Abdominal Exam Abdomen: Other (soft, nontender) Fundal Exam Fundus: Below Umbilicus and Firm Rectal Exam Rectal Exam: Normal Exam Perineum: Intact and Normal Extremities Exam Extremity Exam: Normal Back/Spine/Pelvis Exam Back Exam: Normal Skin Exam Skin Exam: Normal Neurological Exam Neurological Exam: Normal Psychiatric Exam Psychiatric Exam: Normal PFSH All Active Problems (Updated 06/17/23 @ 19:43 by Tasha Chu) Anemia complicating childbirth (Acute) Term delivered (Acute) Left leg pain (Acute) Symphysis pubis disruption (Acute) Rh negative state in antepartum period (Acute) (Acute) Sciatic nerve pain (Acute) Medical History (Updated 06/17/23 @ 19:43 by Tasha Chu) Uterine contractions Small for gestational age fetus affecting management of mother, third trimester, single gestation Family history of transposition of great vessels pt's sister's son, surgeon told them it was likely due to med use in Delayed menses Early stage of Contraceptive management Surgical History (Updated 11/12/22 @ 10:31 by Fadia Ibrahim CNM) H/O wisdom tooth extraction Social History (Updated 11/12/22 @ 11:31 by Fadia Ibrahim CNM) Smoking/Tobacco Use Status: Never Smoking risk assessment performed?: Yes Alcohol Intake: never Drug use: Never Substance use type: does not use Adopted: No Foster care: No Household members: spouse and children Housing: apartment Number of Children: 1 Communication Needs: None Education Level: high school Do you need help understanding health information?: Never current occupation: homemaker Pets and animals: No Sexually active: Yes Do you think of yourself as: straight/heterosexual Current gender identity: female What is your relationship status?: How often do you talk on the phone with friends or family?: three or more times per week How often do you get together with friends or relatives?: three or more times per week How often do you attend hinduism or yazdanism services?: decline to answer Do you belong to any clubs or organized social groups?: no Panel score (0-1 are the most socially isolated patients): 2 NHANES result reviewed/action taken: No What type of physical activity do you participate in: walking Duration: 15-30 minutes/day Frequency: 1-2 times per week Seatbelt use: always Drive intox or ride w/intox services delivery driver: No Do you feel safe at home: Yes Do you feel safe in your relationship?: Yes Victim of physical abuse: No Victim of emotional abuse: No Victim of sexual abuse: No History History 4 Para 1 Hx # Term Pregnancies 1 Multiple births 0 Hx # Pregnancies 0 Ectopic pregnancies 0 AB induced 0 Hx Number of Living Children 1 AB spontaneous 2 Past Pregnancies Del. Date GA/Weeks # Preg Succ Route Wgt Sex Labor Lgth Anesthesia Location Prov Complic 06/06/20 4 No No 10/07/20 6 No No 10/04/21 40 No Yes vaginal 7 lb 13 oz Female 11 hours [place] Delivery Date: 06/06/20 Last Updated by: Fadia Ibrahim CNM SAB no complications, not dated Delivery Date: 10/07/20 Last Updated by: Fadia Ibrahim CNM SAB no complications, was a dated Delivery Date: 10/04/21 Last Updated by: Fadia Woodall CNM used tub for comfort, would like tub this time, [place], is nursing still, left leg paralysis after and unable to walk x 24 hours after . IV pain medication immediately before . DS: Data Vitals/I&O Vitals and I&O: Vital Signs Temperature 98.2 F 06/18/23 02:00 Temperature 97.8 F 06/17/23 10:29 Temperature Source Oral 06/18/23 02:00 Pulse 89 06/18/23 02:00 Pulse 83 06/17/23 10:29 Pulse Rhythm Regular 06/17/23 20:45 Respiratory Rate 17 06/18/23 02:00 Respiratory Depth Normal 06/17/23 20:45 Blood Pressure 125/75 06/18/23 02:00 Blood Pressure 122/80 06/17/23 10:29 Blood Pressure Mean 91 06/18/23 02:00 Pulse Oximetry 98 06/18/23 02:00 Oxygen Delivery Method Room Air 06/16/23 07:46 Oxygen Flow Rate 0 06/16/23 07:46 Pain Level 4 06/16/23 20:59 Comment Charted at shift change 06/16/23 09:33 Intake & Output 06/17/23 06/17/23 06/18/23 11:59 23:59 11:59 Intake Total 365 / 365 Output Total 1600 / 1600 Balance -1599 / -1235 / 1235 Intake: IV Output: Urine 1599 / 1600 Other: Urine Color Pale Pale Data Completed and Pending Labs on day of discharge: Labs from last 24 hours 06/17/23 18:15 WBC 9.04 RBC 2.29 L Hgb 6.4 L* D Hct 20.0 L* MCV 87 MCH 27.9 MCHC 32.0 RDW 13.6 Plt Count 165 MPV 10.3
== END 2023-06-18 11:40 | disposition home or self-care (01) | DRG 806 ==
PROVIDERS: Advanced Practice Midwife; Admitting Provider Advanced Practice Midwife; Visit Provider Advanced Practice Midwife
DX: O48.0 Post-term pregnancy (principal); O36.0930 Maternal care for other rhesus isoimmunization, third trimester, not applicable or unspecified; Z37.0 Single live birth; O71.4 Obstetric high vaginal laceration alone; O72.2 Delayed and secondary postpartum hemorrhage; O99.02 Anemia complicating childbirth; Z3A.40 40 weeks gestation of pregnancy; D64.9 Anemia, unspecified
CPT/HCPCS: 36415; 85027; 86850; 86900; 86901; 87635; 86870; G0378; J0690; J1756; J2590

== ENCOUNTER 2023-07-28 14:05 | Outpatient (CLI) | payer MEDICAID, SELFPAY ==
[2023-07-28] MEDS: IRON SUCROSE COMPLEX 300 MG in Normal Saline 250 ML 167 MG IVPB (15:19)
== END 2023-07-28 15:48 | disposition home or self-care (01) ==
LOC: BCD 14:06 → OBS 14:33
PROVIDERS: Visit Provider Advanced Practice Midwife
DX: O99.03 Anemia complicating the puerperium (principal)
CPT/HCPCS: 96365; J1756

== ENCOUNTER 2023-08-11 08:00 | Day surgery (SDC) | payer MEDICAID, SELFPAY ==
[2023-08-11] VITALS (7 sets, daily range): BP systolic 92–112; BP diastolic 64–80; PULSE 58–98; RESP 15–18; TEMP 36.6–36.8; O2SAT 97–100; BMI 25.3
[2023-08-11 10:39] LABS: HGB 10.8 g/dL (11.2-15.7); MCH 25.6 pg (27.0-33.0); MCHC 30.9 % (32.0-36.0); MCV 83 fL (80-95); MPV 8.9 fL (8.0-11.0); Platelet Count 221 10^3/uL (130-400); RBC 4.22 10^6/uL (3.93-5.22); RDW 15.5 % (11.7-14.6); RDW-SD 46.2 fL; WBC 5.17 10^3/uL (4.4-10.8)
[2023-08-11] MEDS: IRON SUCROSE COMPLEX 300 MG in Normal Saline 250 ML 167 MG IVPB (10:48)
--- NOTE | 2023-08-11 10:57 | DI.US_ITS ---
Exam(s) US PELVIS EXAM: US PELVIS CLINICAL HISTORY: bleeding TECHNIQUE: Ultrasound of the pelvis was performed both transabdominal and transvaginal. COMPARISON: US US OB [facility] WEIGHT from 04/29/2023 FINDINGS: UTERUS: 8 weeks vaginal delivery Measures 9.3 cm length x 4.9 cm AP x 5.3 cm wide. There are no uterine fibroids. Endometrium is grossly thickened. 2.3 cm thickness. No obvious fluid in the endometrial canal. CERVIX: There are no obvious nabothian cysts. RIGHT OVARY: Measures 3.2 x 1.1 x 2.7 cm No significant cysts nor masses evident in the right ovary. LEFT OVARY: Measures 2.5 x 1.8 x 2.6 cm Contains a 1.6 x 1.7 cm cyst CUL-DE-SAC: No free fluid evident. IMPRESSION: 1. Abnormally thickened endometrium. Given recent most probably consistent retained produc ts of conception. 2. Benign unilocular cyst noted in the left kidney measuring 16 x 17 mm. 3. No free fluid evident in the adnexal regions and cul-de-sac. DATA REPOSITORY:
[2023-08-11 11:06] LABS: HCG Quant, Pregnancy 3 mIU/mL (1-3)
--- NOTE | 2023-08-11 14:29 | HPE_ITS ---
Date of service: 08/11/23 Time of Service: 14:29 Assessment and Plan Assessment and plan (1) Retained products of conception, : Status: Acute Assessment and plan: Suspect retained POC due to her presentation of irregular and at times heavy bleeding as well as a thickened endometrium on sono. Discussed with pt and will plan for suction D&C in the OR for uterine evacuation. Consent signed and questions answered. The OR and anesthesia were notified. History of Present Illness History of Present Illness Chief Complaint: Vaginal bleeding Narrative: Pt had an uncomplicated on 06/16/23 followed by PPH later that same day with total EBL of 800ml. Her Hb dropped from 9.9 before delivery to 6.4 At the time she declined transfusion and instead received an iron infusion. At her 2wk pp visit her Hb was 9.4. At 6wks pp her Hb was 9.3 and she was still having some light vaginal bleeding but nothing heavy so the decision was made to get another iron infusion and then return in 2wks for repeat labs and infusion if necessary. Then this am she was a large clot in the toilet and continued to have some moderate bleeding. She did, incidentally, start the control patch 1 week ago. She is not breast-feeding her but occasionally breast- feeds her 2yo daughter. Review of Systems Genitourinary Genitourinary: Reports system reviewed and no additional complaints, except as documented PFSH All Active Problems (Updated 08/11/23 @ 15:03 by Sarah Blevins MD) Retained products of conception, (Acute) Anemia complicating childbirth (Acute) Medical History (Updated 08/11/23 @ 15:03 by Sarah Blevins MD) Sciatic nerve pain Symphysis pubis disruption Family history of transposition of great vessels pt's sister's son, surgeon told them it was likely due to med use in Surgical History (Updated 11/12/22 @ 10:31 by Fadia Ibrahim CNM) H/O wisdom tooth extraction Social History (Updated 11/12/22 @ 11:31 by Fadia Ibrahim CNM) Smoking/Tobacco Use Status: Never Smoking risk assessment performed?: Yes Alcohol Intake: never Drug use: Never Substance use type: does not use Adopted: No Foster care: No Household members: spouse and children Housing: apartment Number of Children: 1 Communication Needs: None Education Level: high school Do you need help understanding health information?: Never current occupation: homemaker Pets and animals: No Sexually active: Yes Do you think of yourself as: straight/heterosexual Current gender identity: female What is your relationship status?: How often do you talk on the phone with friends or family?: three or more times per week How often do you get together with friends or relatives?: three or more times per week How often do you attend alevism or zoroastrian services?: decline to answer Do you belong to any clubs or organized social groups?: no Panel score (0-1 are the most socially isolated patients): 2 NHANES result reviewed/action taken: No What type of physical activity do you participate in: walking Duration: 15-30 minutes/day Frequency: 1-2 times per week Seatbelt use: always Drive intox or ride w/intox tractor trailer moving van driver: No Do you feel safe at home: Yes Do you feel safe in your relationship?: Yes Victim of physical abuse: No Victim of emotional abuse: No Victim of sexual abuse: No History History 2 4 Para 2 Hx # Term Pregnancies 2 Multiple births 0 Hx # Pregnancies 0 Ectopic pregnancies 0 AB induced 0 Hx Number of Living Children 2 AB spontaneous 2 Past Pregnancies Del. Date GA/Weeks # Preg Succ Route Wgt Sex Labor Lgth Anesth esia Location [facility] [place] 06/06/20 4 No No 10/07/20 6 No No 10/04/21 40 No Yes vaginal 7 lb 13 oz Female 11 hours [place] 06/16/23 40 No Yes vaginal 8 lb Female 12hrs 23min Robbi Chu CNM hemorrhage Delivery Date: 06/06/20 Last Updated by: Fadia Ibrahim CNM SAB no complications, not dated Delivery Date: 10/07/20 Last Updated by: Fadia Ibrahim CNM SAB no complications, was a dated Delivery Date: 10/04/21 Last Updated by: Fadia Woodall CNM used tub for comfort, would like tub this time, Betzaida, is nursing still, left leg paralysis after and unable to walk x 24 hours after . IV pain medication immediately before . Delivery Date: 06/16/23 Last Updated by: MD Irwin Flores&C @[facility] pp for continued bleeding. Meds Allergies and Home Medications Allergies Allergy/AdvReac Type Severity Reaction Status Date / Time amoxicillin Allergy Intermediate Hives Verified 07/28/23 13:30 Home Medications Medication Instructions Recorded Confirmed Type vitamin with calcium 1 tab PO DAILY #90 tabs 10/07/22 06/30/23 Rx no.72-iron 27 mg-folic acid 1 mg tablet ferrous sulfate 325 mg (65 mg 325 mg PO DAILY #90 tabs 06/17/23 06/30/23 Rx iron) tablet,delayed release diaphragms, contoured 65 mm-80 mm #1 ea 06/30/23 06/30/23 Rx vaginal (Caya Contoured) norelgestromin 150 mcg-e.estradiol 1 patch transdermal QWEEK #3 ea 07/28/23 07/28/23 Rx 35 mcg/24 hr weekly transderm patch (Xulane) Exam Const General: cooperative, healthy appearing and no acute distress HENMT Head: normocephalic and atraumatic Ears: hearing grossly normal bilaterally Resp Effort & Inspection: normal respiratory effort and able to speak in complete sentences Neuro General: patient alert and patient awake Psych Appearance: grossly normal Mental Status: mental status grossly normal Speech and Movement: speech and movement normal Affect: normal affect Attitude: cooperative Thought Process: normal Thought Content: normal Results Imaging Imaging Studies: Sono: possible retained POC Labs 08/11/23 10:18 Labs: Laboratory Results - last 24 hr 08/11/23 10:18 WBC 5.17 RBC 4.22 Hgb 10.8 L Hct 35.0 L MCV 83 MCH 25.6 L MCHC 30.9 L RDW 15.5 H Plt Count 221 MPV 8.9 Beta HCG, Quant 3 Patient ABO/Rh A Negative Antibody Screen NEGATIVE stable Time Spent Time spent with Patient: 40-54 minutes Time was spent: preparing to see the patient(eg.review tests), obtaining and/or reviewing separately otained hiistory, ordering medications,tests, procedures, referring, communicating with other health small animal caretaker, indepentently interpreting results, counseling the patient and care coordination
--- NOTE | 2023-08-11 15:05 | ANES.PREOP_ITS ---
General Info Date of Service Date Performed: 08/11/23 Height: 5 ft 5 in Weight: 69 kg Body Mass Index (BMI): 25.3 Surgical Procedure: Operation Date: 08/11/23 15:10 Proposed Procedure Side Surgeon p Suction, D+C Sarah Blevins MD Actual Procedure Side Surgeon p Suction, D+C Not Applicable Sarah Blevins MD Pre-Op Diagnosis Post-Op Diagnosis Retained products of conception, Meds Allergies and Home Medications Allergies Allergy/AdvReac Type Severity Reaction Status Date / Time amoxicillin Allergy Intermediate Hives Verified 07/28/23 13:30 Home Medication Medication Instructions Recorded vitamin with calcium 1 tab PO DAILY #90 tabs 10/07/22 no.72-iron 27 mg-folic acid 1 mg tablet ferrous sulfate 325 mg (65 mg 325 mg PO DAILY #90 tabs 06/17/23 iron) tablet,delayed release diaphragms, contoured 65 mm-80 mm #1 ea 06/30/23 vaginal (Caya Contoured) norelgestromin 150 mcg-e.estradiol 1 patch transdermal QWEEK #3 ea 07/28/23 35 mcg/24 hr weekly transderm patch (Xulane) PFS Active Problems Active Problems: Problem Status Onset Code Retained products of conception, O72.0 Anemia complicating childbirth O99.02 Medical History Medical History (Updated 08/11/23 @ 15:03 by Sarah Blevins MD) Sciatic nerve pain Symphysis pubis disruption Family history of transposition of great vessels pt's sister's son, surgeon told them it was likely due to med use in Surgical History Surgical History (Updated 11/12/22 @ 10:31 by Fadia Ibrahim CNM) H/O wisdom tooth extraction Tobacco Smoking/Tobacco Use Status: Never Alcohol Alcohol Intake: never Substance Use Substance use: Never Substance use type: does not use Prental History History 2 4 Para 2 Hx # Term Pregnancies 2 Multiple births 0 Hx # Pregnancies 0 Ectopic pregnancies 0 AB induced 0 Hx Number of Living Children 2 AB spontaneous 2 Past Pregnancies Del. Date GA/Weeks # Preg Succ Route Wgt Sex Labor Lgth Anesth esia Location Prov Complic 06/06/20 4 No No 10/07/20 6 No No 10/04/21 40 No Yes vaginal 3543.69 g Female 11 hours [place] 06/16/23 40 No Yes vaginal 3628.739 g Female 12hrs 23min [place] hemorrhage Delivery Date: 06/06/20 Last Updated by: Fadia Ibrahim CNM SAB no complications, not dated Delivery Date: 10/07/20 Last Updated by: Fadia Ibrahim CNM SAB no complications, was a dated Delivery Date: 10/04/21 Last Updated by: Fadia Woodall CNM used tub for comfort, would like tub this time, Betzaida, is nursing still, left leg paralysis after and unable to walk x 24 hours after . IV pain medication immediately before . Delivery Date: 06/16/23 Last Updated by: Sarah Blevins MD D&C @8wk pp for continued bleeding. Vital Signs and Lab Results Vital Signs Comment Vital Signs Comment:: Temp Pulse Resp BP Pulse Ox 36.6 C 85 16 112/80 100 08/11/23 15:08 08/11/23 15:08 08/11/23 15:08 08/11/23 15:08 08/11/23 15:08 Lab Results 08/11/23 10:18 Blood Type / Crossmatch: 2 Patient ABO/Rh A Negative 08/11/23 Antibody Screen NEGATIVE 08/11/23 Complete Blood Count: 2 White Blood Count 5.17 10^3/uL (4.4-10.8) 08/11/23 10:18 Red Blood Count 4.22 10^6/uL (3.93-5.22) 08/11/23 10:18 Hemoglobin 10.8 g/dL (11.2-15.7) L 08/11/23 10:18 Hematocrit 35.0 % (36.0-46.0) L 08/11/23 10:18 Platelet Count 221 10^3/uL (130-400) 08/11/23 10:18 Complete Metabolic Panel: 2 No Data to Display Liver Function Panel: 2 No Data to Display Coagulation Panel: 2 No Data to Display Cardiac Panel: 2 No Data to Display Arterial Blood Gas: 2 No Data to Display Venous Blood Gas: 2 No Data to Display Pancreas Panel: 2 No Data to Display Thyroid Panel: 2 No Data to Display Infectious Disease: 2 No Data to Display Blood Cultures: 2 No Data to Display Toxicology Panel: 2 No Data to Display Panel: 2 Beta HCG, Quantitative 3 mIU/mL (1-3) 08/11/23 10:18 Anesthesia Assessment and Plan Anesthesia History Personal History: No History of Anesthesia Complications Family History: No Family History of Anesthesia Complications Exercise Tolerance Exercise Tolerance: Metabolic Equivalents>4 Pertinent Negatives Pertinent Negatives: No Symptoms of GERD, No Major Cardiovascular Symptoms or Complaints and No Major Pulmonary Symptoms or Complaints Cardiac & Pulmonary Exam Cardiac Exam: Normal S1/S2 Heart Sounds Pulmonary Exam: Clear Bilateral Breath Sounds Implantable Cardiac Device Does patient have a Pacemaker or an ICD?: No Airway Exam Known Difficult Airway: No Mallampati Class: 2 Mouth Opening: Normal (> 3cm) Thyromental Distance: Greater than 3 cm Neck Range of Motion: Full ROM Neck Circumference: Normal Teeth Condition: Normal Dentition ASA Classification ASA Score: ASA 2 Emergency Case?: No NPO Status NPO Status: NPO Small Non-Fatty Meal >6 hours Status Status: Not Relevant due to Medical History Anesthesia Plan Resuscitation Status: Full Code Anesthesia Technique: General Anesthesia Airway Planned: Endotracheal Tube Monitors Used: Standard Monitors
[2023-08-11] MEDS: DOXYCYCLINE 100 MG in Normal Saline 100 ML IVPB (15:30)
[2023-08-11] MEDS: Lactated Ringers 1,000 ML 30 ML IV (15:30)
--- NOTE | 2023-08-11 15:56 | POCSPONT_PTH ---
PATIENT: Chey Garcia LOC: [facility] U#:[id number] AGE/SX: 27/F ROOM: RE08/11/[address]: Fadia Woodall : 1995 BED: DIS: 08/11/2023 SPEC #: [id number] RECD: 08/11/23 18:46 STATUS: AZALIA REQ #: [id number] ZOE: 08/11/23 15:[address]: Sarah Blevins DEPT: Surgical Specimen RECD BY: Jodi Harry ENTERED: 08/11/23 18:46 SP TYPE: POCSPONT ALDO DR: Fadia Woodall Tissues: 1 - ,SPONTANEOUS Procedures: GROSS AND MICRO LEVEL 4 Comments: [id number]
[2023-08-11] MEDS: Silver Nitrate Stick 1 EACH (16:00)
--- NOTE | 2023-08-11 16:19 | ROE_ITS ---
Date of service: 08/11/23 Time of Service: 16:00 Operative Note Operative Note DATE OF PROCEDURE: 08/11/23 PRE-OP DIAGNOSIS: delayed hemorrhage, retained products of conception POST-OP DIAGNOSIS: same PROCEDURE: Suction dilation and curettage SURGEON: Sarah Blevins ASSISTING SURGEON: Daksha Massey Refer to Anesthesia Record ESTIMATED BLOOD LOSS: 100 COMPLICATIONS: None Patient was transported to: PACU Patient's condition: stable Indications: The pt experienced pph several hours after delivery but that resolved and she had no further heavy bleeding. However, she did continue to have intermittent bleeding and is now 8wks pp and started having heavier bleeding this am. She just started the contraceptive patch last week. Sono revealed a thickened endometrium with possible retained products of conception. Procedure Description: After informed consent was signed the patient was taken to the operating room and given General anesthesia. SCDs were placed on her legs. She was prepped and draped in the dorsal lithotomy position in the [facility]. A time out was performed. Her bladder was drained of urine if not done immediately prior to entrance to the OR. Exam under anesthesia revealed normal external genitalia, vagina normal for age and a normal sized uterus. A speculum was placed into the vagina to reveal the cervix. The anterior lip of the cervix was grasped with a single tooth tenaculum. The cervix was dilated. The suction device was assembled and turned on. The uterine cavity was gently suctioned with a size 9 curved curette to remove the products of conception. A preliminary sharp curettage extracted 1 further small piece of necrotic tissue. Further curette revealed no further significant tissue and there was a gritty texture in all four quadrants of the uterine cavity. There was minimal bleeding and the uterus was noted to be firm. The tenaculum was removed from the cervix with good hemostasis with silver nitrate. The speculum was removed from the vagina. The patient was placed back into the supine position. She was moved to the stretcher and taken to the recovery room in stable condition.
--- NOTE | 2023-08-11 17:10 | W.ANESPOSTOP ---
Postoperative Evaluation Date, Time and Location Date Performed: 08/11/23 Time Performed: 17:10 Patient Location: PACU Vital Signs Most Recent Imported Vital Signs: Most Recent Vital Signs Temp Pulse Resp BP Pulse Ox 36.6 C 64 18 104/72 99 08/11/23 16:38 08/11/23 16:38 08/11/23 16:38 08/11/23 16:38 08/11/23 16:38 Pain Score Most Recent Pain Score: Most Recent Pain Score Pain Level 2 08/11/23 16:38 Assessment Mental Status: Awake (Alert & Oriented to Patient Baseline) Airway and Respiratory Function: Patent airway with normal (patient baseline) respiratory exam Cardiovascular Function: Hemodynamically Stable Hydration Status: Adequately Hydrated Nausea & Vomiting: No Nausea or Vomiting Pain: Pain is tolerable per patient Peripheral Nerve Block: Patient did not receive a nerve block
== END 2023-08-11 17:53 | disposition home or self-care (01) ==
LOC: BCD 08:02 → OBS 13:46 → DSU 08-24 08:47 → OBS 08-24 08:48
PROVIDERS: Advanced Practice Midwife; Obstetrics & Gynecology; Visit Provider Advanced Practice Midwife
PROC: (CPT 59841; principal; 2023-08-11 15:00)
DX: O72.2 Delayed and secondary postpartum hemorrhage (principal); O99.03 Anemia complicating the puerperium
CPT/HCPCS: 59160; 36415; 85027; 86850; 86900; 86901; 88305; 96368; 76856; 84702; J1100; J1756; J1885; J2001; J2405; J2704

== ENCOUNTER 2024-01-01 11:17 | Outpatient (REF) | payer MEDICAID, SELFPAY | END 2024-01-01 11:18 | disposition home or self-care (01) | LOC: NCHCN 11:17 | PROVIDERS: Visit Provider Physician Assistant Medical | DX: J02.9 Acute pharyngitis, unspecified (principal) | CPT/HCPCS: 87070 ==

== ENCOUNTER 2024-01-27 15:21 | Outpatient (REF) | payer MEDICAID, SELFPAY ==
[2024-01-29 12:14] LABS: Chlamydia Result Negative (Negative); GC Result Negative (Negative)
== END 2024-01-27 15:22 | disposition home or self-care (01) ==
LOC: LBN 15:21
PROVIDERS: Visit Provider Obstetrics & Gynecology
DX: N89.8 Other specified noninflammatory disorders of vagina (principal); B37.9 Candidiasis, unspecified
CPT/HCPCS: 87491; 87591; 87480; 87510; 87660